=== PATIENT | male | born 1980 | race Two or more races ===

== ENCOUNTER 2016-08-17 17:58 | Emergency (ER) | payer OTHER ==
[~2016-08-17] VITALS: Ht 175.3 cm; Wt 95.3 kg
--- NOTE | 2016-08-17 18:10 | NUR ---
BIB SELF, CC: RIGHT UPPER QUAD. ABD. PAIN STARTED 12 TODAY. DENIES N/V/D, DENIES TRAUMA. MD AT FOR EVAL. VSS. SAFETY AND COMFORT MEASURES PROVIDED. WILL CONTINUE TO MONITOR.
[2016-08-17] MEDS ORDERED: MORPHINE SULFATE INJ 4 MG/ML DISP.SYRIN ONE (18:22)
[2016-08-17] MEDS ORDERED: ONDANSETRON HCL/PF 4 MG/2 ML VIAL ONE ×2 (18:22→18:54)
[2016-08-17] MEDS ORDERED: IV SET PRIMARY PUMP SET 1 EA INFUS.SET MC ONE (18:23)
[2016-08-17] MEDS ORDERED: IV NS 0.9% 1,000 ML ONE (18:23)
[2016-08-17] MEDS ORDERED: ONDANSETRON HCL/PF 4 MG/2 ML VIAL IVP ONE (18:30)
[2016-08-17] MEDS ORDERED: IV NS 0.9% 1,000 ML BAG IV ONE (18:30)
[2016-08-17] MEDS ORDERED: MORPHINE SULFATE INJ 2 MG/ML DISP.SYRIN IV ONE (18:30)
[2016-08-17 18:39] LABS: BASOPHILS # (AUTO) 0.2 /CMM (0.0-0.2); BASOPHILS % (AUTO) 1.1 % (0.0-2.0); EOSINOPHILS # (AUTO) 0.1 /CMM (0.0-0.7); EOSINOPHILS % (AUTO) 0.4 % (0.0-6.0); HEMATOCRIT 46 % (39-51); HEMOGLOBIN 15.6 g/dL (13.5-17.5); LYMPHOCYTES # (AUTO) 2.1 /CMM (0.8-4.8); LYMPHOCYTES % (AUTO) 14.8 % (20.0-44.0); MEAN CORPUSCULAR HEMOGLOBIN 30 PG (26.0-33.0); MEAN CORPUSCULAR HGB CONC 34 g/dl (31.0-36.0); MEAN CORPUSCULAR VOLUME 86 fL (80-96); MONOCYTES # (AUTO) 0.7 /CMM (0.1-1.30); MONOCYTES % (AUTO) 4.7 % (2.0-12.0); NEUTROPHILS # (AUTO) 10.8 /CMM (1.8-8.9); PLATELET COUNT (AUTO) 278 /CMM (150-450); RDW COEFFICIENT OF VARIATION 12.6 (11.5-15.0); RED BLOOD CELL COUNT(AUTO) 5.28 MIL/uL (4.5-6.0); WHITE BLOOD COUNT (AUTO) 13.9 K/uL (4.3-11.0)
--- NOTE | 2016-08-17 18:40 | NUR ---
IV ACCESS STARTED. BLOOD DRAWN FOR LABS. PT MEDICATED ORDERED.
[2016-08-17 18:48] LABS: CALCIUM, SERUM 8.7 mg/dL (8.5-10.1); CREATININE 1.1 mg/dL (0.6-1.3); POTASSIUM 3.6 mmol/L (3.5-5.1)
--- NOTE | 2016-08-17 18:50 | NUR ---
US DONE AT BS.
[2016-08-17 18:53] LABS: ALBUMIN 4.3 g/dL (3.4-5.0); BILIRUBIN,DIRECT 0.1 mg/dL (0.0-0.2); BILIRUBIN,TOTAL 0.4 mg/dL (0.2-1.0); TOTAL PROTEIN, SERUM 7.9 g/dL (6.4-8.2)
[2016-08-17] MEDS ORDERED: HYDROMORPHONE 1 MG/1 ML DISP.SYRIN ONE ×2 (18:54→20:18)
--- NOTE | 2016-08-17 18:55 | NUR ---
PT TAKEN TO CT.
[2016-08-17] MEDS ORDERED: ONDANSETRON HCL/PF 4 MG/2 ML VIAL IV ONE (19:00)
[2016-08-17] MEDS ORDERED: HYDROMORPHONE 1 MG/1 ML DISP.SYRIN IV ONE ×2 (19:00→20:30)
--- NOTE | 2016-08-17 19:10 | NUR ---
Received patient on bed 1 a 36 yo male , aaox4, ambulatory, complaining of sharp pain on right upper quadrant abdomen at 10/10. Pain management in place, comfort measures rendered. No s/s of acute distress. Skin warm and dry. Breathing even and unlabored. Will continue to monitor.
--- NOTE | 2016-08-17 19:24 | NUR ---
Dr Edward at bedside.
[2016-08-17] MEDS ORDERED: DIAZEPAM 10 MG TABLET PO ONE (19:30)
[2016-08-17] MEDS ORDERED: KETOROLAC TROMETHAMINE INJ 30 MG/ML VIAL IV ONE (19:30)
[2016-08-17] MEDS ORDERED: DIAZEPAM 5 MG TABLET ONE (19:42)
[2016-08-17] MEDS ORDERED: KETOROLAC TROMETHAMINE INJ 30 MG/ML VIAL ONE (19:42)
[2016-08-17] MEDS ORDERED: MAG HYDROX/AL HYDROX/SIMETH 30 ML UDC ONE (19:45)
[2016-08-17] MEDS ORDERED: LIDOCAINE VISCOUS 2% UD 15 ML UDC ONE (19:45)
[2016-08-17] MEDS ORDERED: FAMOTIDINE/PF INJ 20 MG/2 ML VIAL IV ONE ×2 (19:46→20:00)
[2016-08-17] MEDS ORDERED: DICYCLOMINE HCL 10 MG/5 ML UDC ONE (19:47)
[2016-08-17] MEDS ORDERED: MAG HYDROX/AL HYDROX/SIMETH 30 ML UDC PO ONE (20:00)
[2016-08-17] MEDS ORDERED: BELLADONNA /PHENOBARB 5 ML UDC 5 ML UDC PO ONE (20:00)
[2016-08-17] MEDS ORDERED: DICYCLOMINE HCL 10 MG CAPSULE PO ONE (20:00)
[2016-08-17] MEDS ORDERED: LIDOCAINE VISCOUS 2% UD 15 ML UDC MM ONE (20:00)
[2016-08-17] MEDS ORDERED: CT SWABBABLE VALVE TRANS SET 1 EA INFUS.SET MC ONE (20:34)
[2016-08-17] MEDS ORDERED: IV NS 0.9% 250 ML IV ONE (20:34)
[2016-08-17] MEDS ORDERED: IOHEXOL-350 100 ML VIAL IV ONE (20:34)
--- NOTE | 2016-08-17 20:35 | NUR ---
patient to ct
--- NOTE | 2016-08-17 20:50 | NUR ---
back from ct.
--- NOTE | 2016-08-17 22:00 | NUR ---
Patient discharged to home in stable condition. Written and verbal after care instructions given. Patient verbalizes understanding of instruction. Patient is ambulatory with steady gait. Instructed not to drive.
[2016-08-17 22:29] VITALS: BP 149/89
== END 2016-08-17 22:29 | disposition home or self-care (01) ==
LOC: ER 18:00
DX: R10.11 Right upper quadrant pain (principal)
CPT/HCPCS: 36415; 71010-TC; 76705-TC; 80048-TC; 80076-TC; 83690-TC; 85025-TC; A4606; J1170; J1885; J2270; J2405; J3490; J7030; J7050; Q9967; Z7610